=== PATIENT | female | born 1985 | race Native Hawaiian/Other Pacific Islander ===

== ENCOUNTER 2017-09-18 02:30 | Inpatient (IN) | payer OTHER ==
[2017-09-18] MEDS ORDERED: Sodium Citrate/Citric Acid 15 ml Sol PO ONE (02:53)
[2017-09-18] MEDS ORDERED: Lactated Ringer's 1,000 ML IV SCH (03:00)
--- NOTE | 2017-09-18 03:05 | OBADHP ---
Datetime: 09/18/2017 03:00 Admit Comment, IP Provider: at 39+weeks came with c/o vaginal bleeding started 30min ago and bc k pain started at 12 am.pt felsthe baby moving obhx 1 x pmh den med pnv all nkda psh denies soch ve 70/-2 sse mod vb a/p at 39+weks r/o placental bruption admit for stt primary c/s npo/ivf labs anthesia aware peads aware informed conent r/a/b Pelvic Type - PN: Adequate Extremities - PN: Normal Abdomen - PN: Normal Back - PN: Normal Breast - PN: Normal Lungs - PN: Normal Heart - PN: Normal Thyroid - PN: Normal Neurologic - PN: Normal HEENT - PN: Normal General - PN: Normal FHR - Baseline A Provider: 130 Contraction Comments Provider: q1-4 Comments, ACOG Physical Exam: sse mofd vaginal bleeding 250/-3 IP Hx Assessment: The History has been Reviewed and is Current Vital Signs Provider: Reviewed; Within Normal Limits IP Chief Complaint: Vaginal bleeding NICHD Variability Prov Fetus A: Minimal - Undetectable to <5bpm FHR Category Provider Fetus A: Category III Dilatation, Provider: 2 Effacement, Provider: 50 Station, Provider: -3 Genitourinary Exam: Normal DTRs - PN: Normal EGA AdmitDate IP: 39.4 IP Adm Impression: , intrauterine IP Admit Plan: Admit to unit; Initiate Section protocol
[2017-09-18] MEDS ORDERED: Oxytocin 20 units in LR 2,000 ML IV ONE (03:07)
[2017-09-18] MEDS ORDERED: cefOXitin IV 2 gm in Saline 2 GM/50 ML BAG IVPB ONE (03:07)
[2017-09-18 03:10] LABS: BASO # 0.1 K/uL (0.0-0.2); BASO % 0.9 % (0.0-2.0); EOS # 0.1 K/uL (0.0-0.7); EOS % 0.5 % (0.0-4.0); LYMPH # 3.2 K/uL (1.0-4.3); MEAN CELL VOLUME 78.7 fL (81.0-99.0); MEAN CORPUSCULAR HEMOGLOBIN 25.8 pg (27.0-31.0); MEAN CORPUSCULAR HGB CONC 32.8 g/dL (33.0-37.0); MEAN PLATELET VOLUME 8.5 fL (7.2-11.7); MONO % 7.1 % (0.0-10.0); NEUT # 10.1 K/uL (1.8-7.0); NEUT % 69.5 % (50.0-75.0); RBC 4.64 Mil/uL (3.80-5.20); RED CELL DISTRIBUTION WIDTH 15.8 % (11.5-14.5); WHITE BLOOD COUNT 14.6 K/uL (4.8-10.8)
[2017-09-18 03:13] LABS: SQUAMOUS EPITHIAL < 1 /hpf (0-5); URINE BACTERIA RARE (<OCC); URINE BILIRUBIN NEGATIVE (NEGATIVE); URINE BLOOD NEGATIVE (NEGATIVE); URINE CLARITY Clear (Clear); URINE COLOR Straw (YELLOW); URINE GLUCOSE (UA) NORMAL (Normal); URINE LEUKOCYTE ESTERASE NEG Leu/uL (Negative); URINE PROTEIN NEGATIVE (NEGATIVE); URINE UROBILINOGEN NORMAL mg/dL (0.2-1.0)
[2017-09-18 03:20] LABS: INR 0.9; PROTHROMBIN TIME 9.7 SECONDS (9.7-12.2)
[2017-09-18] MEDS ORDERED: Oxytocin 10 Units/ml Inj ONE (03:23)
[2017-09-18] MEDS ORDERED: cefOXitin 2 GM in Sodium Chloride 0.9% 100 ML IV ONE (04:00)
[2017-09-18] MEDS ORDERED: Oxycodone/Acetaminophen 5/325 mg Tab PO PRN (04:03)
--- NOTE | 2017-09-18 04:04 | OBDS ---
DELIVERY PERSONNEL Delivery Doctor: Kim Schrader MD Behavioral Health Case Manager: Kayla Lee RN Anesthesiologist: dr. puga MATERNAL INFORMATION Delivery Anesthesia: General Medications in Delivery: pitocin, methergine, hemabate Placenta Cultured: No Maternal Complications: Abruptio Placenta Provider Comments: PRIVATE Dr Schrader baby deliverd by stat c/s for ctg 111 tracinfg r/o placenta abruption with vnb. baby in aleah. cord arround the neck tight. cord gas and blood taken. plcente abuption 50. end clean no com. uterine atony extra pitocin, methergin , hemabate and cytotec given no com peads present. 9/9 LABOR SUMMARY EDC: 09/21/2017 00:00 No. Babies in Womb: 1 Attempted: No Labor Anesthesia: None LABOR INFORMATION Other Ripening Agents: n/a Oxytocin: N/A Group B Beta Strep: Negative Steroids Given: None Reason Steroids Not Administered: Not Applicable MEMBRANES Membranes Rupture Method: Artificial Rupture of Membranes: 09/18/2017 03:17 Length of Rupture (hrs): 0.00 Amniotic Fluid Color: Clear Amniotic Fluid Amount: Moderate Amniotic Fluid Odor: Normal STAGES OF LABOR Stage 3 hrs: 0 Stage 3 min: 1 VAGINAL DELIVERY Episiotomy: None Laceration Extension: N/A Laceration Type: None CSECTION DELIVERY Primary Indication: Nonreassuring Status Secondary Indication: Abruptio Placenta CSection Urgency: Emergency CSection Incidence: Primary Labor: Labor Elective: Elective CSection Incision: Lower Uterine Transverse BABY A INFORMATION Delivery Date/Time: 09/18/2017 03:17 Method of Delivery: Born in Route : No : N/A Forceps: N/A Vacuum Extraction: N/A Shoulder Dystocia : Yes SHOULDER DYSTOCIA BABY A Delivery Date/Time: 09/18/2017 03:17 PRESENTATION/POSITION BABY A Presentation: Cephalic Cephalic Presentation: Vertex Vertex Position: Left Occipital Anterior Breech Presentation: N/A PLACENTA INFORMATION BABY A Placenta Delivery Time : 09/18/2017 03:18 Placenta Method of Delivery: Manual Removal Placenta Status: Delivered SCORES BABY A Heart Rate 1 min: >100 bpm Resp Effort 1 min: Good Cry Reflex Irritability 1 min: Cough or Sneeze or Pulls Away Muscle Tone 1 min: Active Motion Color 1 min: Body Nikep, Extremities Blue SCORE 1 MIN: 9 Heart Rate 5 min: >100 bpm Resp Effort 5 min: Good Cry Reflex Irritability 5 min: Cough or Sneeze or Pulls Away Muscle Tone 5 min: Active Motion Color 5 min: Body Nikep, Extremities Blue SCORE 5 MIN: 9 INFANT INFORMATION BABY A Gestational Age at Delivery: 39.4 Gestational Status: Term Outcome : Liveborn Condition : Stable Infant Sex: Male IDENTIFICATION/MEDS BABY A ID Band Number: [id number] ID Band Location: Left Leg; Left Arm Sensor Applied: Yes Sensor Number: [id number] Sensor Location : Cord Clamp Vitamin K Given : Not Given Erythromycin Given: Not Given WEIGHT/LENGTH BABY A Infant Birthweight (gms): 2990 Weight (lb): 6 Weight (oz): 9 Length Inches: 19.25 Length cms: 48.9 CORD INFORMATION BABY A No. Cord Vessels: 3 Nuchal Cord : Around Neck x1, Tight Cord Blood Taken: Yes Infant Suction: Mouth; Nose ASSESSMENT BABY A Infant Complications: Decreased Variability; Multiple Variable Decels Physical Findings at Delivery: Within Normal Limits Respirations: Appears Normal Bottom Turning Lathe Turner/ALS Called : Yes Care By: dr. schuler/dilcia Transferred To: [facility]
--- NOTE | 2017-09-18 04:06 | PCM.SURG1 ---
Surgeon's Initial Post Op Note - Surgeon's Notes Surgeon: dr krishnan Sheet Rock Applicator: dr mendoza Type of Anesthesia: General LMA Anesthesia Administered By: dr puga Pre-Operative Diagnosis: 32 yr at 39+weks stat c/s ctg 111 tracing r/o placental abruption Operative Findings: see the op reort Post-Operative Diagnosis: placental abruption 50% Operation Performed: stat primary section Specimen/Specimens Removed: cord blood cord gas. placente Estimated Blood Loss: EBL {In ML}: 800 Blood Products Given: N/A Drains Used: No Drains Post-Op Condition: Good Date of Surgery/Procedure: 09/18/17 Time of Surgery/Procedure: 04:35
[2017-09-18] MEDS ORDERED: DiphenhydrAMINE 50 mg/ml Inj IVP PRN (04:13)
[2017-09-18] MEDS ORDERED: Morphine Monoject Barrel PCA 1mg/ml IV PRN (04:13)
[2017-09-18] MEDS ORDERED: Morphine 4 MG/ML VIAL ONE ×2 (04:21→06:57)
[2017-09-18] MEDS: Morphine 4 MG/ML VIAL IVP STA ×2 (04:22→06:57)
[2017-09-18] MEDS: Simethicone 80 mg Chewtab PO SCH ×4 (10:18→23:31)
[2017-09-18 16:35] LABS: HEMOGLOBIN 9.1 g/dL (11.0-16.0); MEAN CELL VOLUME 77.7 fL (81.0-99.0); MEAN CORPUSCULAR HGB CONC 32.2 g/dL (33.0-37.0); MEAN PLATELET VOLUME 7.9 fL (7.2-11.7); RBC 3.65 Mil/uL (3.80-5.20); RED CELL DISTRIBUTION WIDTH 15.9 % (11.5-14.5); WHITE BLOOD COUNT 16.4 K/uL (4.8-10.8)
[2017-09-18] MEDS: Oxycodone/Acetaminophen 5/325 mg Tab PO PRN ×2 (18:39→23:29)
[2017-09-19] MEDS ORDERED: Bisacodyl 5mg EC Tab PO ONE ×2 (04:03→11:30)
[2017-09-19] MEDS: Oxycodone/Acetaminophen 5/325 mg Tab PO PRN ×4 (05:50→23:45)
[2017-09-19 06:59] LABS: BASO % 0.2 % (0.0-2.0); EOS # 0.1 K/uL (0.0-0.7); EOS % 0.6 % (0.0-4.0); LYMPH # 2.2 K/uL (1.0-4.3); LYMPH % 15.8 % (20.0-40.0); MEAN CELL VOLUME 77.6 fL (81.0-99.0); MEAN CORPUSCULAR HEMOGLOBIN 25.8 pg (27.0-31.0); MEAN CORPUSCULAR HGB CONC 33.3 g/dL (33.0-37.0); MEAN PLATELET VOLUME 8.2 fL (7.2-11.7); MONO # 0.9 K/uL (0.0-0.8); MONO % 6.6 % (0.0-10.0); NEUT # 10.7 K/uL (1.8-7.0); NEUT % 76.8 % (50.0-75.0); RBC 3.09 Mil/uL (3.80-5.20); RED CELL DISTRIBUTION WIDTH 15.8 % (11.5-14.5); WHITE BLOOD COUNT 13.9 K/uL (4.8-10.8)
[2017-09-19] MEDS: Simethicone 80 mg Chewtab PO SCH ×4 (10:53→21:02)
--- NOTE | 2017-09-20 06:40 | OBPPN ---
Datetime: 09/20/2017 06:39 PP Pain Prov: Within normal limits PP Nausea Prov: Denies PP Flatus Prov: Yes PP Abdomen/Uterus Prov: Normal PP Lochia Prov: Normal PP Extremities Prov: Normal PP C/S Incision Prov: Normal PP Plan Prov: Continue present management PP Progress Note Prov: pt was seen at bed side, pain under cotrol,no n/v, tolerating deit,voiding,mi n lochia, f pod#2s/p c/s cont post op care ont pain encourage ambu Vital Signs Provider PP: Reviewed; Within Normal Limits Datetime: 09/19/2017 07:53 PP BM Prov: No PP Impression Prov: Normal progression
[2017-09-20] MEDS: Oxycodone/Acetaminophen 5/325 mg Tab PO PRN ×3 (08:20→21:00)
[2017-09-20] MEDS: Simethicone 80 mg Chewtab PO SCH ×4 (10:13→21:01)
[2017-09-21] MEDS: Simethicone 80 mg Chewtab PO SCH (09:33)
[2017-09-21 16:36] VITALS: BP 121/75; PULSE 69; RESP 18; TEMP 97; O2SAT 99
== END 2017-09-21 11:30 | disposition home or self-care (01) | DRG 651 ==
LOC: C.EROB 02:30 → C.4D 02:55 → C.4M 07:40
PROVIDERS: ADMIT Obstetrics & Gynecology; ATTEND Obstetrics & Gynecology
PROC: 10D00Z1 Extraction of Products of Conception, Low, Open Approach (ICD-10-PCS; principal; 2017-09-18)
DX: O45.93 Premature separation of placenta, unspecified, third trimester (principal); O62.2 Other uterine inertia; O66.0 Obstructed labor due to shoulder dystocia; O76 Abnormality in fetal heart rate and rhythm complicating labor and delivery; O69.1XX0 Labor and delivery complicated by cord around neck, with compression, not applicable or unspecified; Z3A.39 39 weeks gestation of pregnancy; Z37.0 Single live birth